=== PATIENT | female | born 1940 | race Caucasian/White ===

== ENCOUNTER → 2017-02-06 | Outpatient (CLI) | payer MEDICARE, OTHER ==
[~2017-02-06] MED LIST: ACET325T9 PO; ASPI-482 PO; DILT120C97 PO; FAMO20TA5 PO; GLUC100018 PO; LACT1CAP6 PO; MAG30ORA PO; MAGN2400 PO; METH29OI TP; METO25TA2 PO; MIRT7.5T8 PO; MULT-245 PO; OLAN5TAB5 PO; OMEG1CAP38 PO; PILO5TAB11 PO; QUET25TA5 PO; RANI150T6 PO; RIVA1PAT5 TD; TRAZ50TA15 PO; VITA1CAP PO
[2017-02-06 15:59] VITALS: BP 149/69
== END | disposition home or self-care (01) ==
LOC: OPS 15:22
PROVIDERS: ATTEND Specialist
DX: N39.43 Post-void dribbling (principal); R39.198 Other difficulties with micturition
CPT/HCPCS: 51798

== ENCOUNTER 2018-03-17 08:40 | Emergency (ER) | payer MEDICARE, OTHER ==
[~2018-03-17 08:40] MED LIST changes: +DILT120C80 PO; -DILT120C97 PO
[2018-03-17] MEDS ORDERED: DIPHTH,PERTUSS(ACELL),TET TOX 0.5 ML DISP.SYRIN. VAX IM ONE (09:15)
--- NOTE | 2018-03-17 09:43 | PHYS DOC ---
Past History Past Medical History: Dementia Past Surgical History: No Surgical History Smoking: Non-smoker Alcohol Use: None Drug Use: None Adult General Chief Complaint Chief Complaint: MECHANICAL FALL HPI HPI 77-year-old female patient had a mechanical fall from a standing position while walking around a curb yesterday and hit her face and right hand and bilateral knees without loss of consciousness. She was able to ambulate after her fall but complaining of pain in her right wrist with edema. Patient states she was not able to eat like her usual but denies chest pain, shortness of breath, focal neuro deficit, fever and chills, blurred vision, headache. Patient is not up-to-date with tetanus immunization. Review of Systems Review of Systems Constitutional: Denies fever or chills [] Eyes: Denies change in visual acuity, redness, or eye pain [] HENT: Denies nasal congestion or sore throat [] Respiratory: Denies cough or shortness of breath [] Cardiovascular: No additional information not addressed in HPI [] GI: Denies abdominal pain, nausea, vomiting, bloody stools or diarrhea [] : Denies dysuria or hematuria [] Musculoskeletal: Denies back pain , reports joint pain [] Integument: Reports contusion and abrasion, denies rash and skin lesion Neurologic: Denies headache, focal weakness or sensory changes [] Endocrine: Denies polyuria or polydipsia [] All other systems were reviewed and found to be within normal limits, except as documented in this note. Current Medications Current Medications Current Medications Medications (Trade) Dose Ordered Sig/Kaleb Start Time Stop Time Status Last Admin Dose Admin Diphtheria/ Tetanus/Acell Pertussis (Boostrix) 0.5 ml ONCE ONCE 03/17/18 09:15 03/17/18 09:16 DC Allergies Allergies Allergies Coded Allergies Type Severity Reaction Last Updated Verified Penicillins Allergy Intermediate 06/13/16 Yes Physical Exam Physical Exam Constitutional: Well developed, well nourished, mild distress, non-toxic appearance. [] HENT: Normocephalic, contusion and ecchymosis of lateral side of right orbit, bilateral external ears normal, oropharynx moist, no oral exudates, nose normal. [] Eyes: PERRLA, EOMI, conjunctiva normal, no discharge. [] Neck: Normal range of motion, no tenderness, supple, no stridor. [] Cardiovascular:Heart rate regular rhythm, no murmur [] Lungs & Thorax: Bilateral breath sounds clear to auscultation [] Abdomen: Bowel sounds normal, soft, no tenderness, no masses, no pulsatile masses. [] Skin: Warm, dry, no erythema, no rash. [] Back: No tenderness, no CVA tenderness. [] Extremities: Right wrist with edema and tenderness in the radial site without deformity, right hand edema and contusion and tenderness in fifth metacarpal area were no neurovascular deficit, bilateral knee contusion and mild edema, left knee tenderness in anterior area without focal neuro deficit Neurologic: Alert and oriented X 3, normal motor function, normal sensory function, no focal deficits noted. [] Psychologic: Affect normal, judgement normal, mood normal. [] Current Patient Data Vital Signs Vital Signs Date Time Temp Pulse Resp B/P (MAP) Pulse Ox O2 Delivery O2 Flow Rate FiO2 03/17/18 08:48 98.1 95 16 100 Room Air EKG EKG [] Radiology/Procedures Radiology/Procedures [] [address] [address] IMAGING REPORT Signed PATIENT: WALTER GAY ACCOUNT: [id number] : 1940 LOCATION: ER AGE: 77 SEX: F EXAM STATUS: REG ER ORD. PHYSICIAN: ZENON ANGULO MD REASON: fall PROCEDURE: HAND RIGHT 2V Right hand AP lateral x-rays 2 views History: Fall, right hand pain Findings: Acute traumatic fracture of the articular cortex of the radius at the radiocarpal joint. Small chronic ossicle adjacent of the ulna at the wrist. Acute traumatic comminuted fracture with mild distraction of the fifth distal metacarpal shaft and head although the majority of the articular cortex is not involved. No dislocation. Impression: Acute traumatic fractures of the distal radius and fifth metacarpal as described above. DICTATED AND SIGNED BY: SIERRA SULLIVAN MD DATE: 03/17/18 1019 CC: ZENON ANGULO MD; MARIA C CASTELLANOS MD ~ [address] [address] IMAGING REPORT Signed PATIENT: WALTER GAY ACCOUNT: [id number] : 1940 LOCATION: ER AGE: 77 SEX: F EXAM STATUS: REG ER ORD. PHYSICIAN: ZENON ANGULO MD REASON: fall PROCEDURE: KNEE BILAT 3V AP, lateral and oblique x-rays 3 views bilateral knees History: Fall, bilateral knee pain. Findings: Bilateral meniscal chondrocalcinosis. The right knee demonstrates no fracture or dislocation. The left knee demonstrates an acute traumatic fracture of the anterior cortex of the lower patella with overlying soft tissue swelling on the lateral view. Impression: Acute traumatic fracture of the left patella. DICTATED AND SIGNED BY: SIERRA SULLIVAN MD DATE: 03/17/18 1021 CC: ZENON ANGULO MD; MARIA C CASTELLANOS MD ~ [place] [address] IMAGING REPORT Signed PATIENT: WALTER GAY ACCOUNT: [id number] : 1940 LOCATION: ER AGE: 77 SEX: F EXAM STATUS: REG ER ORD. PHYSICIAN: ZENON ANGULO MD REASON: FALL PROCEDURE: CT MAXILLOFACIAL WO CONTRAST Maxillofacial CT without contrast Technique: Helical multiplanar reconstructed noncontrast CT imaging of the facial bones was acquired. History: Fall, facial pain. Findings: Bilateral parotid glands are atrophic and demonstrate several calculi. There is mild soft tissue swelling and edema along the right face and lateral periorbital soft tissues. No soft tissue hematoma. No postseptal orbital edema or hematoma. Orbits intact. Facial bones intact. Paranasal sinuses well aerated. Maxilla and mandible are intact. Impression: Facial bones intact. Mild facial soft tissue edema and swelling at the right face and lateral periorbital tissues. DICTATED AND SIGNED BY: SIERRA SULLIVAN MD DATE: 03/17/18 1010 CC: ZENON ANGULO MD; MARIA C CASTELLANOS MD Course & Med Decision Making Course & Med Decision Making Pertinent Imaging studies reviewed. (See chart for details) Evaluation of patient in ER showed 77-year-old female patient with a fall from a standing position yesterday and complaining of pain in the right wrist and left knee. Patient had distal radius and left fifth metacarpal and left patella fracture. Right extremities splint and left knee immobilizer was applied by [employer] with good cap refill. Patient did not want to have pain medication at arrival to ER but later on asked for pain medication.patient instructed to follow-up with superintendent overhead distribution orthopedic physician and uses home walker. Prescription for Tylenol#3 was given. Dragon Disclaimer Dragon Disclaimer This electronic medical record was generated, in whole or in part, using a voice recognition dictation system. Departure Departure: Impression: Primary Impression: Closed fracture of right distal radius Additional Impressions: Closed fracture of fifth metacarpal bone of right hand Closed fracture of left patella Facial contusion Fall Dementia Disposition: HOME, SELF-CARE (At 1145) Condition: IMPROVED Referrals: MARIA C CASTELLANOS MD (PCP) Patient Instructions: Hand Fracture, Fifth Metacarpal, Patellar Fracture, Adult , Wrist Fracture Additional Instructions: Follow-up with Dr. Temple superintendent overhead distribution orthopedic physician [facility] Call [phone] to make an appointment Use home walker Return to ER if not getting better Scripts Acetaminophen With Codeine (TYLENOL WITH CODEINE #3 TABLET) 1 Each Tablet 1 TAB PO Q6HRS, #30 TAB Prov: ZENON ANGULO MD 03/17/18 Problem Qualifiers ZENON ANGULO MD Mar 17, 2018 09:43
--- NOTE | 2018-03-17 10:18 | RAD ---
Maxillofacial CT without contrast Technique: Helical multiplanar reconstructed noncontrast CT imaging of the facial bones was acquired. History: Fall, facial pain. Findings: Bilateral parotid glands are atrophic and demonstrate several calculi. There is mild soft tissue swelling and edema along the right face and lateral periorbital soft tissues. No soft tissue hematoma. No postseptal orbital edema or hematoma. Orbits intact. Facial bones intact. Paranasal sinuses well aerated. Maxilla and mandible are intact. Impression: Facial bones intact. Mild facial soft tissue edema and swelling at the right face and lateral periorbital tissues.
--- NOTE | 2018-03-17 10:21 | RAD ---
Right wrist x-rays 3 views History: Right wrist pain, fall Findings: Acute traumatic comminuted fracture of the distal fifth metacarpal shaft and head. Separately there is a nondisplaced acute traumatic fracture of the distal radius articular cortex at the radiocarpal joint. There is a small chronic ossicle adjacent of the ulnocarpal articulation. Carpal bones intact. No dislocation. Impression: Acute traumatic fracture of the distal radius involving the articular cortex of the radiocarpal joint. Acute traumatic fracture of the distal fifth metacarpal.
--- NOTE | 2018-03-17 10:23 | RAD ---
Right hand AP lateral x-rays 2 views History: Fall, right hand pain Findings: Acute traumatic fracture of the articular cortex of the radius at the radiocarpal joint. Small chronic ossicle adjacent of the ulna at the wrist. Acute traumatic comminuted fracture with mild distraction of the fifth distal metacarpal shaft and head although the majority of the articular cortex is not involved. No dislocation. Impression: Acute traumatic fractures of the distal radius and fifth metacarpal as described above.
--- NOTE | 2018-03-17 10:27 | RAD ---
AP, lateral and oblique x-rays 3 views bilateral knees History: Fall, bilateral knee pain. Findings: Bilateral meniscal chondrocalcinosis. The right knee demonstrates no fracture or dislocation. The left knee demonstrates an acute traumatic fracture of the anterior cortex of the lower patella with overlying soft tissue swelling on the lateral view. Impression: Acute traumatic fracture of the left patella.
--- NOTE | 2018-03-17 10:38 | RAD ---
CT head without contrast. CT cervical spine without contrast History: Fall, dizziness, headache, right-sided cervical pain. Technique: Noncontrast CT imaging of the head and cervical spine with multiplanar reconstructions was acquired. CT head findings: No intracranial hemorrhage, mass, hydrocephalus or infarction. Mild generalized brain atrophy. No acute ischemic changes. Orbits, mastoids, paranasal sinuses and bones are unremarkable. Impression: No acute intracranial CT abnormality. CT cervical spine findings: Craniocervical junction intact. Cervical vertebral body height and alignment intact. Ankylosis of the bilateral C2-C3 through C4-C5 facet joints. Partial interbody osseous fusion at C2-C3, C3-C4 and C4-C5. This could be congenital. No fracture of the cervical spine. Mild apical fibrosis. Disc osteophyte C6-C7 with spinal canal and neural foraminal stenosis. Soft disc bulge C5-C6 with spinal canal stenosis. Paraspinal tissues are unremarkable. Impression: No acute osseous injury of the cervical spine.
[2018-03-17 11:15] VITALS: BP 133/71
[2018-03-17] MEDS ORDERED: ACET-704 PO (11:43)
[2018-03-17] MEDS ORDERED: ACETAMINOPHEN/CODEINE 300/30MG TABLET PO ONE (11:45)
== END 2018-03-17 12:15 | disposition home or self-care (01) ==
LOC: ER 08:40
DX: S52.501A Unspecified fracture of the lower end of right radius, initial encounter for closed fracture (principal); S62.396A Other fracture of fifth metacarpal bone, right hand, initial encounter for closed fracture; S82.002A Unspecified fracture of left patella, initial encounter for closed fracture; S00.83XA Contusion of other part of head, initial encounter; F03.90 Unspecified dementia, unspecified severity, without behavioral disturbance, psychotic disturbance, mood disturbance, and anxiety; Z88.0 Allergy status to penicillin; W01.198A Fall on same level from slipping, tripping and stumbling with subsequent striking against other object, initial encounter; Y93.01 Activity, walking, marching and hiking; Y99.8 Other external cause status; Y92.89 Other specified places as the place of occurrence of the external cause
CPT/HCPCS: 29125; 29505; 70450; 70486; 72125; 73110; 73120; 73562; 99284-25

== ENCOUNTER 2020-01-16 07:00 | Emergency (ER) | payer MEDICARE, OTHER ==
[~2020-01-16] VITALS: Ht 160 cm; Wt 58.0 kg
[~2020-01-16 07:00] MED LIST changes: +ACET-704 PO; -DILT120C80 PO; +DILT120C99 PO; -MAGN2400 PO; +MAGN24003 PO; +RANI-376 PO; -RANI150T6 PO; +TRAZ-120 PO; -TRAZ50TA15 PO
[2020-01-16] MEDS ORDERED: IV NORMAL SALINE 1,000ML 1,000 ML IV SCH (07:05)
[2020-01-16] MEDS ORDERED: ONDANSETRON PF 4 MG/2 ML VIAL. IVP ONE (07:15)
[2020-01-16 07:39] LABS: BASO % 1 % (0-3); EOS # 0.1 x10^3/uL (0.0-0.7); EOS % 1 % (0-3); HEMATOCRIT 38.3 % (36.0-47.0); HEMOGLOBIN 12.6 g/dL (12.0-15.5); LYMPH # 0.5 x10^3/uL (1.0-4.8); LYMPH % 10 % (24-48); MEAN CORPUSCULAR HEMOGLOBIN 29 pg (25-35); MEAN CORPUSCULAR HGB CONC 33 g/dL (31-37); MEAN CORPUSCULAR VOLUME 88 fL (79-100); MONO # 0.4 x10^3/uL (0.0-1.1); MONO % 8 % (0-9); NEUT # 3.9 x10^3uL (1.8-7.7); NEUT % 80 % (31-73); PLATELET COUNT 188 x10^3/uL (140-400); RED BLOOD COUNT 4.37 x10^6/uL (3.50-5.40); RED CELL DISTRIBUTION WIDTH 13.2 % (11.5-14.5); WHITE BLOOD COUNT 4.8 x10^3/uL (4.0-11.0)
--- NOTE | 2020-01-16 07:40 | EKG ---
[address] [address] Test Date: 2020-01-16 Test Time: 07:31:01 Pat Name: WALTER GAY Department: Room: Gender: F Certified Addiction Counselor: : 1940 Requested By: ERNESTO CASTELLON Order Number: [id number] Reading MD: Measurements Intervals [place] Rate: 74 P: 38 [place]: 236 QRS: 38 QRSD: 72 T: 55 QT: 394 QTc: 443 Interpretive Statements SINUS RHYTHM PROLONGED [place] INTERVAL ABNORMAL ECG RI6.01 No previous ECG available for comparison
[2020-01-16 07:45] LABS: CALCIUM 9.1 mg/dL (8.5-10.1); CREATININE 0.9 mg/dL (0.6-1.0); GFR 60.2; POTASSIUM 3.8 mmol/L (3.5-5.1)
[2020-01-16 07:47] LABS: BACTERIA,URINE 0 /HPF (0-FEW); BILIRUBIN,URINE NEG (NEG); CLARITY,URINE CLEAR; COLOR,URINE YELLOW; GLUCOSE,URINE NEG (NEG); NITRITE,URINE NEG (NEG); RBC,URINE OCC /HPF (0-2); SQUAMOUS EPITHELIAL CELL,UR FEW /LPF; UROBILINOGEN,URINE 0.2 mg/dL (0.2 mg/dL)
[2020-01-16 07:51] LABS: ALBUMIN 3.9 g/dL (3.4-5.0); ALBUMIN/GLOBULIN RATIO 1.1 (1.0-1.7); TOTAL BILIRUBIN 0.5 mg/dL (0.2-1.0); TOTAL PROTEIN 7.6 g/dL (6.4-8.2)
[2020-01-16] MEDS ORDERED: IOHEXOL 300 MG/ML 75 ML VIAL. IV ONE (08:15)
--- NOTE | 2020-01-16 08:17 | PHYS DOC ---
Past History Past Medical History: Dementia, Pancreatitis, Other Additional Past Medical Histor: heart murmur Past Surgical History: Hysterectomy Smoking: Non-smoker Alcohol Use: None Drug Use: None Adult General Chief Complaint Chief Complaint: TREMORS HPI HPI Patient is a 79-year-old female who presents with complaint of tremors at home that are worsened usual. Patient also reportedly has been having some dry h eaves. Upon arrival, patient initially complained of some pain but was not able to further elaborate and when asked again, patient stated she had no pain. Additional history is limited due to patient history of dementia. Patient's daughter is not able to provide any additional history.[] Review of Systems Review of Systems Constitutional: Denies fever or chills [] Respiratory: Denies cough or shortness of breath [] Cardiovascular: No additional information not addressed in HPI [] GI: Denies abdominal pain. Complains of nausea with dry heaves without vomiting or diarrhea [] Integument: Denies rash or skin lesions [] Neurologic: Denies headache, focal weakness or sensory changes [] All other systems were reviewed and found to be within normal limits, except as documented in this note. Current Medications Current Medications Current Medications Medications (Trade) Dose Ordered Sig/Kaleb Start Time Stop Time Status Last Admin Dose Admin Iohexol (Omnipaque 300 Mg/ml) 75 ml 1X ONCE 01/16/20 08:15 01/16/20 08:16 Ondansetron HCl (Zofran) 4 mg 1X ONCE 01/16/20 07:15 01/16/20 07:16 DC 01/16/20 07:57 4 MG Sodium Chloride 1,000 ml @ 1,000 mls/hr Q1H 01/16/20 07:05 01/16/20 08:04 DC 01/16/20 07:56 1,000 MLS/HR Allergies Allergies Allergies Coded Allergies Type Severity Reaction Last Updated Verified Penicillins Allergy Intermediate 01/16/20 Yes Physical Exam Physical Exam Constitutional: Well developed, well nourished, no acute distress, non-toxic appearance. [] HENT: Normocephalic, atraumatic, bilateral external ears normal, oropharynx moist, no oral exudates, nose normal. [] Eyes: PERRLA, EOMI, conjunctiva normal, no discharge. [] Neck: Normal range of motion, no tenderness, supple, no stridor. [] Cardiovascular: Regular rate and rhythm[] Lungs & Thorax: Bilateral breath sounds clear to auscultation [] Abdomen: Bowel sounds normal, soft, with epigastric tenderness. [] Skin: Warm, dry, no erythema, no rash. [] Extremities: No tenderness, no cyanosis, no clubbing, ROM intact, no edema. [] Neurologic: Awake and alert, no focal deficits noted. [] Current Patient Data Vital Signs Vital Signs Date Time Temp Pulse Resp B/P (MAP) Pulse Ox O2 Delivery O2 Flow Rate FiO2 01/16/20 07:00 98.0 72 20 133/71 (91) 97 Room Air Lab Results Laboratory Tests Test 01/16/20 07:15 White Blood Count 4.8 x10^3/uL (4.0-11.0) Red Blood Count 4.37 x10^6/uL (3.50-5.40) Hemoglobin 12.6 g/dL (12.0-15.5) Hematocrit 38.3 % (36.0-47.0) Mean Corpuscular Volume 88 fL (79-100) Mean Corpuscular Hemoglobin 29 pg (25-35) Mean Corpuscular Hemoglobin Concent 33 g/dL (31-37) Red Cell Distribution Width 13.2 % (11.5-14.5) Platelet Count 188 x10^3/uL (140-400) Neutrophils (%) (Auto) 80 % (31-73) H Lymphocytes (%) (Auto) 10 % (24-48) L Monocytes (%) (Auto) 8 % (0-9) Eosinophils (%) (Auto) 1 % (0-3) Basophils (%) (Auto) 1 % (0-3) Neutrophils # (Auto) 3.9 x10^3uL (1.8-7.7) Lymphocytes # (Auto) 0.5 x10^3/uL (1.0-4.8) L Monocytes # (Auto) 0.4 x10^3/uL (0.0-1.1) Eosinophils # (Auto) 0.1 x10^3/uL (0.0-0.7) Basophils # (Auto) 0.0 x10^3/uL (0.0-0.2) Urine Collection Type U cath Urine Color Yellow Urine Clarity Clear Urine pH 8.5 Urine Specific [place] 1.020 Urine Protein Neg (NEG-TRACE) Urine Glucose (UA) Neg mg/dL (NEG) Urine Ketones (Stick) Neg mg/dL (NEG) Urine Blood Neg (NEG) Urine Nitrite Neg (NEG) Urine Bilirubin Neg (NEG) Urine Urobilinogen Dipstick 0.2 mg/dL (0.2 mg/dL) Urine Leukocyte Esterase Neg (NEG) Urine RBC Occ /HPF (0-2) Urine WBC 1-4 /HPF (0-4) Urine Squamous Epithelial Cells Few /LPF Urine Bacteria 0 /HPF (0-FEW) Urine Mucus Slight /LPF Sodium Level 140 mmol/L (136-145) Potassium Level 3.8 mmol/L (3.5-5.1) Chloride Level 104 mmol/L (98-107) Carbon Dioxide Level 26 mmol/L (21-32) Anion Gap 10 (6-14) Blood Urea Nitrogen 18 mg/dL (7-20) Creatinine 0.9 mg/dL (0.6-1.0) Estimated GFR (Cockcroft-Gault) 60.2 BUN/Creatinine Ratio 20 (6-20) Glucose Level 125 mg/dL (70-99) H Calcium Level 9.1 mg/dL (8.5-10.1) Total Bilirubin 0.5 mg/dL (0.2-1.0) Aspartate Amino Transferase (AST) 20 U/L (15-37) Alanine Aminotransferase (ALT) 25 U/L (14-59) Alkaline Phosphatase 70 U/L (46-116) Troponin I Quantitative < 0.017 ng/mL (0-0.055) Total Protein 7.6 g/dL (6.4-8.2) Albumin 3.9 g/dL (3.4-5.0) Albumin/Globulin Ratio 1.1 (1.0-1.7) Lipase 128 U/L (73-393) EKG EKG [] Radiology/Procedures Radiology/Procedures [] Impressions: PROCEDURE: CT ABD PELV W/ IV CONTRST ONLY PQRS Compliance Statement: One or more of the following individualized dose reduction techniques were utilized for this examination: 1. Automated exposure control 2. Adjustment of the mA and/or kV according to patient size 3. Use of iterative reconstruction technique CT ABD PELV W/ IV CONTRST ONLY Clinical Indication: Constipation, upper abdominal pain with tremors. Comparison: CT abdomen and pelvis with contrast, October 13, 2016. Technique: Helical CT imaging of the abdomen and pelvis is performed after 75 cc of Omnipaque 300 IV contrast. Oral contrast not administered. Findings: Mild atelectasis or scarring in the right lower lobe. Respiratory motion artifact. Cardiac size normal. Severe atherosclerotic calcification at the origin of the celiac artery. Atherosclerotic abdominal aorta, no aneurysm. The liver, gallbladder, spleen, pancreas, and adrenal glands are normal. Kidneys enhance symmetrically, no hydronephrosis. No obvious abnormality of the stomach. There is no dilated small bowel. The visualized appendix is normal caliber. Distal colon diverticulosis. Rectum is mildly distended with stool. There is no colon wall thickening. No abdominal adenopathy or free fluid. The urinary bladder is normal. Hysterectomy. No pelvic free fluid. There is degenerative spondylosis of the lumbar spine. Stable bone island of the left femur. IMPRESSION: 1. No acute abdominal or pelvic abnormality. 2. Distal colon diverticulosis. Electronically signed by: Leno Storey MD (01/16/2020 9:28 AM) [id number] DICTATED AND SIGNED BY: LENO STOREY MD DATE: 01/16/20 0928 CC: ERNESTO CASTELLON Jr. DO; MARIA C CASTELLANOS MD ~ Course & Med Decision Making Course & Med Decision Making Pertinent Labs and Imaging studies reviewed. (See chart for details) [] Dragon Disclaimer Dragon Disclaimer This electronic medical record was generated, in whole or in part, using a voice recognition dictation system. Departure Departure: Impression: Primary Impression: Nausea Additional Impression: Tremor Disposition: 01 HOME, SELF-CARE Condition: STABLE Referrals: MARIA C CASTELLANOS MD (PCP) Patient Instructions: Nausea, Adult, Tremor Scripts Ondansetron (ONDANSETRON ODT) 4 Mg Tab.rapdis 1 TAB PO PRN Q6-8HRS PRN for NAUSEA, #12 TAB Prov: ERNESTO CASTELLON Jr., DO 01/16/20 Problem Qualifiers ERNESTO CASTELLON Jr., DO Jan 16, 2020 08:17
--- NOTE | 2020-01-16 09:30 | RAD ---
PQRS Compliance Statement: One or more of the following individualized dose reduction techniques were utilized for this examination: 1. Automated exposure control 2. Adjustment of the mA and/or kV according to patient size 3. Use of iterative reconstruction technique CT ABD PELV W/ IV CONTRST ONLY Clinical Indication: Constipation, upper abdominal pain with tremors. Comparison: CT abdomen and pelvis with contrast, October 13, 2016. Technique: Helical CT imaging of the abdomen and pelvis is performed after 75 cc of Omnipaque 300 IV contrast. Oral contrast not administered. Findings: Mild atelectasis or scarring in the right lower lobe. Respiratory motion artifact. Cardiac size normal. Severe atherosclerotic calcification at the origin of the celiac artery. Atherosclerotic abdominal aorta, no aneurysm. The liver, gallbladder, spleen, pancreas, and adrenal glands are normal. Kidneys enhance symmetrically, no hydronephrosis. No obvious abnormality of the stomach. There is no dilated small bowel. The visualized appendix is normal caliber. Distal colon diverticulosis. Rectum is mildly distended with stool. There is no colon wall thickening. No abdominal adenopathy or free fluid. The urinary bladder is normal. Hysterectomy. No pelvic free fluid. There is degenerative spondylosis of the lumbar spine. Stable bone island of the left femur. IMPRESSION: 1. No acute abdominal or pelvic abnormality. 2. Distal colon diverticulosis. Electronically signed by: Leno Isabel MD (01/16/2020 9:28 AM) [id number]
[2020-01-16 09:38] VITALS: BP 168/82
[2020-01-16] MEDS ORDERED: ONDA4TAB12 PO (09:41)
== END 2020-01-16 10:06 | disposition home or self-care (01) ==
LOC: ER 07:00
DX: R25.1 Tremor, unspecified (principal); R11.0 Nausea; F03.90 Unspecified dementia, unspecified severity, without behavioral disturbance, psychotic disturbance, mood disturbance, and anxiety; Z88.0 Allergy status to penicillin
CPT/HCPCS: 36415; 74177; 80053; 81001; 83690; 84484; 85025; 93005; 96374; 99285; J2405; P9612; Q9967; J7030

== ENCOUNTER → 2020-11-19 | Outpatient (CLI) | payer MEDICARE, OTHER ==
[~2020-11-19] MED LIST changes: -OLAN5TAB5 PO; +OLAN5TAB99 PO; +ONDA4TAB12 PO
--- NOTE | 2020-11-19 09:22 | RAD ---
Bilateral lower extremity arterial duplex Doppler ultrasound HISTORY: Peripheral vascular disease. FINDINGS: Both legs demonstrate very mild flat echogenic nonshadowing plaquing without measurable bianka nosis or occlusion of the arteries and grayscale and color Doppler sonography. There are diffuse biph asic waveforms throughout both legs. Individual flow velocities are described below. Right leg velocities Common femoral artery: 107 cm/s. Profunda femoral artery: 64 cm/s. Superficial femoral artery: 84 cm/s proximal, 91 cm/s mid segment, 63 cm/s distal. Popliteal artery: 65 cm/s. Posterior tibial artery: 66 cm/s proximal, 51 cm/s distal. Peroneal artery: 51 cm/s: Anterior tibial artery: 50 cm/s. Dorsalis pedis artery: 73 cm/s. Left leg velocities Common femoral artery: 68 cm/s. Profunda femoral artery: 64 cm/s. Superficial femoral artery: 72 cm/s proximal, 82 cm/s mid segment, 58 cm/s distal. Popliteal artery: 74 cm/s. Posterior tibial artery: 67 cm/s proximal, 37 cm/s distal. Peroneal artery: 60 cm/s. Anterior tibial artery: 52 cm/s. Dorsalis pedis artery: 56 cm/s. Impression: Very mild plaquing of the leg arteries without evidence of measurable stenosis or occlusi on. Electronically signed by: Castro Maharaj MD (11/19/2020 9:20 AM) [id number]
== END ==
LOC: US 07:53
PROVIDERS: ATTEND Specialist
DX: I73.9 Peripheral vascular disease, unspecified (principal)
CPT/HCPCS: 93925

== ENCOUNTER 2021-05-01 16:19 | Emergency (ER) | payer MEDICARE, OTHER ==
[~2021-05-01] VITALS: Ht 157.5 cm; Wt 52.3 kg
[2021-05-01 17:32] VITALS: BP 126/69
[2021-05-01] MEDS ORDERED: IOHEXOL 300 MG/ML 75 ML VIAL. IV ONE (19:00)
[2021-05-01] MEDS ORDERED: CONTRAST GIVEN. MC PRN (19:00)
== END 2021-05-01 18:59 | disposition left against medical advice (07) ==
LOC: ER 16:19
DX: R10.9 Unspecified abdominal pain (principal); Z53.21 Procedure and treatment not carried out due to patient leaving prior to being seen by health care provider